=== PATIENT | female | born 1975 | race Hispanic/Latino ===

== ENCOUNTER 2016-12-12 07:21 | Emergency (ER) | payer BC, OTHER ==
[2016-12-12 07:21] VITALS: BMI 23.9
[2016-12-12 08:06] VITALS: BP 130/76; PULSE 77; RESP 18; TEMP 98.2; O2SAT 100
--- NOTE | 2016-12-12 09:02 | ED PDOC ---
Arrival/HPI - General Chief Complaint: Abnormal Skin Integrity Time Seen by Provider: 12/12/16 08:13 Historian: Patient - History of Present Illness Narrative History of Present Illness (Text): 12/12/16 08:14 A 41 year old female, whose past medical history includes Lupus, presents to the emergency department complaining of diffuse hives that started last night. Patient reports initial she had some amounts of hives on the left arm and this morning upon wake it radiated throughout the body. She took a Benadryl last night before going to bed. The rashes are itchy and has happened to here 4 times in the past. Patient was seen by an equipment maintenance supervisor but no cause was discovered. Patient states in the past a steroid and pepcid has helped. She denies any shortness of breath, swelling or any other complaints at this time. PMD: Dr. Goncalves Time/Duration: Other (12-18 hours) Symptom Onset: Gradual Symptom Course: Worsening Quality: Other Activities at Onset: Rest Context: Home Past Medical History - Provider Review Nursing Documentation Reviewed: Yes - Past History Past History: Non-Contributing - Infectious Disease Hx of Infectious Diseases: None - Tetanus Immunization Tetanus Immunization: Unknown - Reproductive Menopause: No - Past Medical History Past Medical History: No Previous - Endocrine/Metabolic Hx Systemic Lupus Erythematosus: Yes - Psychiatric Hx Depression: No Hx Emotional Abuse: No Hx Physical Abuse: No Hx Substance Use: No - Surgical History Hx Tubal Ligation: Yes - Anesthesia Hx Anesthesia: Yes Hx Anesthesia Reactions: No - Suicidal Assessment Feels Threatened In Home Enviroment: No Family/Social History - Physician Review Nursing Documentation Reviewed: Yes Family/Social History: Unknown Family HX Smoking Status: Unknown If Ever Smoked Hx Alcohol Use: No Hx Substance Use: No Hx Substance Use Treatment: No Allergies/Home Meds Allergies/Adverse Reactions: Allergies Penicillins Allergy (Verified 12/12/16 08:06) ANAPHYLAXIS Home Medications: Home Meds Medication Instructions Recorded Confirmed Hydroxychloroquine Sulfate 12/12/16 [Plaquenil] Review of Systems - Physician Review All systems were reviewed & negative as marked: Yes - Review of Systems Respiratory: absent: SOB Skin: Rash, Pruritis Physical Exam Vital Signs Reviewed: Yes Vital Signs Temp Pulse Resp BP Pulse Ox 12/12/16 08:01 98.2 F 77 18 130/76 100 Temperature: Afebrile Blood Pressure: Normal Pulse: Regular Respiratory Rate: Normal Appearance: Positive for: Well-Appearing, Non-Toxic, Comfortable Pain Distress: None Mental Status: Positive for: Alert and Oriented X 3 - Systems Exam Head: Present: Atraumatic, Normocephalic Pupils: Present: PERRL Extroacular Muscles: Present: EOMI Conjunctiva: Present: Normal Mouth: Present: Moist Mucous Membranes Neck: Present: Normal Range of Motion Respiratory/Chest: Present: Clear to Auscultation, Good Air Exchange. No: Respiratory Distress, Accessory Muscle Use Cardiovascular: Present: Regular Rate and Rhythm, Normal S1, S2. No: Murmurs Abdomen: Present: Normal Bowel Sounds. No: Tenderness, Distention, Peritoneal Signs Back: Present: Normal Inspection Upper Extremity: Present: Normal Inspection. No: Cyanosis, Edema Lower Extremity: Present: Normal Inspection. No: Edema Neurological: Present: GCS=15, CN II-XII Intact, Speech Normal Skin: Present: Warm, Dry, Rashes (diffuse gives to the extremities and torso), Normal Color Psychiatric: Present: Alert, Oriented x 3, Normal Insight, Normal Concentration Medical Decision Making ED Course and Treatment: 12/12/16 08:20 Patient given Pepcid and prednisone. 12/12/16 08:30 On re-evaluation, the patient feels better and is in no acute distress. I have discussed the results and plan with the patient, who expresses understanding. Patient in agreement with plan to discharged home. Patient is stable for discharge. Patient was instructed to follow up with physician/clinic in 1-2 days or return if symptoms worsen or new concerning symptoms arise. - Medication Orders Current Medication Orders: Discontinued Medications Famotidine (Pepcid) 20 mg PO STAT STA Stop: 12/12/16 08:21 Last Admin: 12/12/16 08:30 Dose: 20 MG Prednisone (Prednisone Tab) 40 mg PO STAT STA Stop: 12/12/16 08:21 Last Admin: 12/12/16 08:29 Dose: 40 MG - Scribe Statement The provider has reviewed the documentation as recorded by the Nehemiah Knight Provider Scribe Attestation: All medical record entries made by the Kamrynibpepe were at my direction and personally dictated by me. I have reviewed the chart and agree that the record accurately reflects my personal performance of the history, physical exam, medical decision making, and the department course for this patient. I have also personally directed, reviewed, and agree with the discharge instructions and disposition. Disposition/Present on Arrival - Present on Arrival Any Indicators Present on Arrival: No History of DVT/PE: No History of Uncontrolled Diabetes: No Urinary Catheter: No History of Decub. Ulcer: No History Surgical Site Infection Following: None - Disposition Have Diagnosis and Disposition been Completed?: Yes Diagnosis: Urticaria Disposition: HOME/ ROUTINE Disposition Time: 18:30 Patient Problems: Current Active Problems Problem Status Diagnosed Urticaria Acute Condition: STABLE Discharge Instructions (ExitCare): Urticaria (ED) Additional Instructions: Please follow up with your doctor. Start steroid tomorrow as you already received today's dose in the ER. Return to the ER for any worsening symptoms or for any other concerns. Prescriptions: Prednisone [Deltasone] 40 mg PO DAILY #4 tab Forms: WORK NOTE
== END 2016-12-12 09:00 | disposition home or self-care (01) ==
LOC: ED 07:21
DX: L50.9 Urticaria, unspecified (principal); M32.9 Systemic lupus erythematosus, unspecified

== ENCOUNTER 2018-06-04 09:26 | Emergency (ER) | payer BC ==
[2018-06-04 10:31] VITALS: TEMP 98.2; BMI 25.6
[2018-06-04] MEDS ORDERED: DiphenhydrAMINE 50 mg/ml Inj IVP STA (10:49)
--- NOTE | 2018-06-04 11:33 | ED PDOC ---
Arrival/HPI - General Chief Complaint: High Blood Pressure Time Seen by Provider: 06/04/18 10:28 Historian: Patient - History of Present Illness Narrative History of Present Illness (Text): 06/04/18 11:30 43yo female with pmhx of lupus present with complaint of headache, blurred vision and elevated BP. She states she has been getting these symptoms intermittently for few months now. states she have had many test and all came b ack negative. States is upsetting her and causing her to have insomnia so she wakes up every morning with headache, blurred vision and memory loss. She had MRI of the brain done 05/26/18 and it was negative. states none of the doctors she have seen, wants to give her antihypertensive. She denies focal weakness, slurred speech, facial droop, visual acuity change, nausea, vomiting, abdominal pain, any other complaint. Past Medical History - Provider Review Nursing Documentation Reviewed: Yes - Past History Past History: Non-Contributing - Infectious Disease Hx of Infectious Diseases: None - Tetanus Immunization Tetanus Immunization: Unknown - Past Medical History Past Medical History: No Previous - Endocrine/Metabolic Hx Endocrine Disorders: Yes Hx Systemic Lupus Erythematosus: Yes - Psychiatric Hx Depression: No Hx Emotional Abuse: No Hx Physical Abuse: No Hx Substance Use: No - Surgical History Hx Tubal Ligation: Yes - Anesthesia Hx Anesthesia: Yes Hx Anesthesia Reactions: No - Suicidal Assessment Feels Threatened In Home Enviroment: No Family/Social History - Physician Review Nursing Documentation Reviewed: Yes Family/Social History: Unknown Family HX Smoking Status: Never Smoked Hx Alcohol Use: Yes Frequency of alcohol use: Socially Hx Substance Use: No Hx Substance Use Treatment: No Allergies/Home Meds Allergies/Adverse Reactions: Allergies Penicillins Allergy (Verified 06/04/18 10:28) ANAPHYLAXIS Review of Systems - Physician Review All systems were reviewed & negative as marked: Yes - Review of Systems Constitutional: Other (Elevated BP) Eyes: Normal ENT: Normal Respiratory: Normal Cardiovascular: Normal Gastrointestinal: Normal Genitourinary Female: Normal Musculoskeletal: Normal Skin: Normal Neurological: Headache. absent: Dizziness, Focal Weakness, Speech Changes, Facial Droop Endocrine: Normal Hemo/Lymphatic: Normal Psychiatric: Normal Physical Exam Vital Signs Reviewed: Yes Vital Signs Temp Pulse Resp BP Pulse Ox 06/04/18 13:45 98.2 F 75 19 98 06/04/18 13:16 98.2 F 78 19 125/84 98 06/04/18 10:29 98.2 F 72 17 158/101 H 100 Temperature: Afebrile Blood Pressure: Hypertensive Pulse: Regular Respiratory Rate: Normal Appearance: Positive for: Well-Appearing, Non-Toxic, Comfortable Pain Distress: None Mental Status: Positive for: Alert and Oriented X 3 - Systems Exam Head: Present: Atraumatic, Normocephalic Pupils: Present: PERRL Extroacular Muscles: Present: EOMI Conjunctiva: Present: Normal Mouth: Present: Moist Mucous Membranes Neck: Present: Normal Range of Motion Respiratory/Chest: Present: Clear to Auscultation, Good Air Exchange. No: Respiratory Distress, Accessory Muscle Use Cardiovascular: Present: Regular Rate and Rhythm, Normal S1, S2. No: Murmurs Abdomen: No: Tenderness, Distention, Peritoneal Signs Back: Present: Normal Inspection Upper Extremity: Present: Normal Inspection. No: Cyanosis, Edema Lower Extremity: Present: Normal Inspection. No: Edema Neurological: Present: GCS=15, CN II-XII Intact, Speech Normal, Motor Func Grossly Intact, Normal Sensory Function, Normal Cerebellar Funct, Norm Deep Tendon Reflexes, Gait Normal, Memory Normal, Normal 2Pt Descrimination, Other (No focal neurological deficit) Skin: Present: Warm, Dry, Normal Color. No: Rashes Psychiatric: Present: Alert, Oriented x 3, Normal Insight, Normal Concentration Medical Decision Making ED Course and Treatment: 06/04/18 20:28 Pt in ED for stated history. she was neurologically intact in ED. Her neck was supple and she had no meningeal signs. Lab was not remarkable. Her MRI from 05/26/18 was [id number] and it was normal. they is no indication for imaging today, she has been having these symptoms for a while now. She was treated with Benadryl, reglan and Tylenol. On re evaluation she notes that her headache resolved. Her BP also improved significantly. Result was DW the pt and she was DC home with Fioricet. - Lab Interpretations Lab Results: 06/04/18 11:30 06/04/18 11:30 Lab Results 06/04/18 11:30: Sodium 137, Potassium 4.3, Chloride 103, Carbon Dioxide 24, Anion Gap 14, BUN 8, Creatinine 0.7, Est GFR ( Amer) > 60, Est GFR (Non- Af Amer) > 60, Random Glucose 86, Calcium 10.0, Magnesium 2.1, Total Bilirubin 0.4, AST 27, ALT 29, Alkaline Phosphatase 66, Lactate Dehydrogenase 460, Total C reatine Kinase 83, Troponin I < 0.01, Total Protein 7.8, Albumin 4.6, Globulin 3.2, Albumin/Globulin Ratio 1.4 06/04/18 11:30: PT 11.5, INR 1.00, APTT 26.6 06/04/18 11:30: WBC 8.3, RBC 4.25, Hgb 13.2, Hct 39.5, MCV 92.9, MCH 31.1, MCHC 33.4, RDW 13.0, Plt Count 272, MPV 10.5, Gran % 67.2, Lymph % (Auto) 19.9 L, Branch % (Auto) 5.9, Eos % (Auto) 6.4 H, Baso % (Auto) 0.6, Gran # 5.58, Lymph # (Auto) 1.7, Branch # (Auto) 0.5, Eos # (Auto) 0.5, Baso # (Auto) 0.05 - Medication Orders Current Medication Orders: Discontinued Medications Acetaminophen (Tylenol 325mg Tab) 650 mg PO STAT STA Stop: 06/04/18 10:50 Last Admin: 06/04/18 11:45 Dose: 650 mg MAR Pain/Vitals Document 06/04/18 11:45 CAST (Rec: 06/04/18 11:45 CAST [id number]) Pain Reassessment Is This A Pain ReAssessment? No Sleep Is patient sleeping during reassessment? No Presence of Pain Presence of Pain Yes Pain Scale Used Pain Scale Used Numeric Location Pain Location Body Commercial Loan Assistant Description Constant Intensity 7 Scale Used Numeric Pain Behavior Facial Grimacing Aggravating Factors Changing Position Alleviating Factors Medication Diphenhydramine HCl (Benadryl) 25 mg IVP STAT STA Stop: 06/04/18 10:50 Last Admin: 06/04/18 11:44 Dose: 25 mg IVP Administration Document 06/04/18 11:44 [email or web address] (Rec: 06/04/18 11:45 CAST [id number]) Charges for Administration # of IVP Administrations 1 Metoclopramide HCl (Reglan) 10 mg IVP STAT STA Stop: 06/04/18 10:50 Last Admin: 06/04/18 11:45 Dose: 10 mg IVP Administration Document 06/04/18 11:45 [facility] (Rec: 06/04/18 11:45 [email or web address] [id number]) Charges for Administration # of IVP Administrations 1 Disposition/Present on Arrival - Present on Arrival Any Indicators Present on Arrival: No History of DVT/PE: No History of Uncontrolled Diabetes: No Urinary Catheter: No History of Decub. Ulcer: No History Surgical Site Infection Following: None - Disposition Have Diagnosis and Disposition been Completed?: Yes Diagnosis: Headache Disposition: HOME/ ROUTINE Disposition Time: 13:35 Patient Plan: Discharge Condition: STABLE Discharge Instructions (ExitCare): Headache, Adult Additional Instructions: Follow up with your Doctor/Neurologist Return to ED for any new or worsening symptoms Prescriptions: Acetaminophen/Butalbital/Caf [Fioricet] 1 tab PO Q4 #10 tab Referrals: Svetlana Maldonado MD [Staff Provider] - Follow up with primary Forms: [employer] ([employer]), WORK NOTE
[2018-06-04 11:45] LABS: BASO # 0.05 K/mm3 (0.0-2.0); BASO % 0.6 % (0.0-3.0); EOS # 0.5 (0.0-0.7); EOS % 6.4 % (1.5-5.0); GRAN # 5.58 (1.4-6.5); GRAN % 67.2 % (50.0-68.0); HEMOGLOBIN 13.2 g/dL (12.0-16.0); LYMPH # 1.7 (1.2-3.4); LYMPH % 19.9 % (22.0-35.0); MEAN CELL VOLUME 92.9 fl (80.0-105.0); MEAN CORPUSCULAR HEMOGLOBIN 31.1 pg (25.0-35.0); MEAN CORPUSCULAR HGB CONC 33.4 g/dl (31.0-37.0); MEAN PLATELET VOLUME 10.5 fl (7.0-11.0); MONO # 0.5 (0.1-0.6); MONO % 5.9 % (1.0-6.0); RBC 4.25 10^6/uL (3.5-6.1); WHITE BLOOD COUNT 8.3 10^3/ul (4.5-11.0)
[2018-06-04 11:54] LABS: PARTIAL THROMBOPLASTIN TIME 26.6 Seconds (25.1-36.5); PROTHROMBIN TIME 11.5 SECONDS (9.4-12.5)
[2018-06-04 11:59] LABS: ALB/GLOB RATIO 1.4 (1.1-1.8); ALBUMIN 4.6 g/dL (3.0-4.8); ALT/SGPT 29 U/L (7-56); AST/SGOT 27 U/L (14-36); BLOOD UREA NITROGEN 8 mg/dL (7-21); GFR NON-AFRICAN AMERICAN > 60
[2018-06-04 12:10] LABS: TROPONIN I < 0.01 ng/mL
[2018-06-04 13:17] VITALS: BP 125/84; RESP 19; O2SAT 98
[2018-06-04 13:46] VITALS: PULSE 75
== END 2018-06-04 13:45 | disposition home or self-care (01) ==
LOC: ED 09:26
DX: R51 Headache (principal); M32.9 Systemic lupus erythematosus, unspecified
CPT/HCPCS: 80053; 82550; 83615; 83735; 84484; 85025; 85610; 85730; 96374; 96375; 99283; J1200; J2765